=== PATIENT | male | born 1960 | race Caucasian/White ===

== ENCOUNTER 2020-11-11 10:31 | Inpatient (IN) ==
[2020-11-11 11:26] LABS: Basophils # (auto) 0.01 K/uL (0-0.2); Basophils % (auto) 0.2 %; Eosinophils % (auto) 1.9 %; Hematocrit (blood only) 42.3 % (42-52); Hemoglobin 14.1 g/dL (14.0-18.0); Immature Granulocytes # (auto) 0.01 K/uL (0.00-0.02); Immature Granulocytes % (auto) 0.2 %; Lymphocytes # (auto) 0.72 K/uL (1.2-3.4); Lymphocytes % (auto) 13.6 %; Mean Corpuscular Hemoglobin 29.1 pg (25-34); Mean Corpuscular Hgb Conc 33.3 g/dL (32-36); Mean Corpuscular Volume 87.4 fL (80-100); Mean Platelet Volume 8.8 fL (7.4-10.4); Monocytes # (auto) 0.18 K/uL (0.11-0.59); Monocytes % (auto) 3.4 %; Neutrophils # (auto) 4.28 K/uL (1.4-6.5); Neutrophils % (auto) 80.7 %; Platelet Count 224 K/uL (130-400); RDW Coefficient of Variation 13.2 % (11.5-14.5); RDW Standard Deviation 42.7 fL (36.4-46.3); Red Blood Count 4.84 M/uL (4.7-6.1)
[2020-11-11 11:36] LABS: Partial Thromboplastin Time 25.5 Seconds (21.0-31.0); Prothrombin Time 10.6 Seconds (9.0-12.0)
[2020-11-11 11:48] LABS: BUN Creatinine Ratio 16.4 (10-20); Blood Urea Nitrogen 13 mg/dl (7-18); Calcium 8.4 mg/dl (8.5-10.1); Carbon Dioxide 27 mmol/L (21-32); Chloride 110 mmol/L (98-107); Creatinine Clr Calc Pharmacy 95.4 ml/min; Est GFR (African American) 110.6 ml/min; Est GFR (Non-African American) 95.4 ml/min; Glucose 129 mg/dl (70-99); Lipase 220 U/L (73-393); Potassium 4.7 mmol/L (3.5-5.1); Sodium 138 mmol/L (136-145); Troponin I < 0.015 ng/ml (0-0.045)
--- NOTE | 2020-11-11 12:27 | CT Scan Report ---
CT ANGIOGRAM OF THE CHEST CLINICAL HISTORY: Chest Pain, eval for PE COMPARISON STUDY: Chest x-ray dated 07/12/2015 TECHNIQUE: Following the IV administration of 120 mL of Optiray, CT angiogram of the thorax was perfo rmed from the thoracic inlet to the lung bases utilizing the pulmonary embolus protocol. Images are r eviewed in the axial, sagittal, and coronal planes. IV contrast was administered without complication . MIP imaging was performed. A dose lowering technique was utilized adhering to the principles of AL MURI[place]. CT DOSE: 312.74 mGy.cm FINDINGS: No pathologically enlarged axillary mediastinal or hilar lymph nodes were visualized. There was no evidence of thoracic aortic dilatation. There are multiple bilateral pulmonary artery filling defects, the largest of which is located at the origin of the left lower lobe pulmonary artery. The findings are indicative of acute bilateral pulmo nary embolism No pleural effusions are visualized. There are mild dependent atelectatic changes. There is a low suspicion 4 mm right upper lobe perifissural nodule. IMPRESSION: 1. Acute bilateral pulmonary embolism. ACT 112: Negative or not required by law. Electronically signed by: Armando Jensen M.D. 11/11/2020 12:25 PM
[2020-11-11] MEDS ORDERED: Heparin IV Adult Wt-Based Standard WITH Bolus Protocol IV STA (12:52)
[2020-11-11] MEDS ORDERED: HEPARIN SOD (PORCINE) 1000 UNIT/ML IV ONE (13:07)
[2020-11-11] MEDS: HEPARIN SODIUM/DEXTROSE 25,000 UNITS/500 ML BAG IV SCH (13:21)
--- NOTE | 2020-11-11 13:39 | Electrocardiogram Report ---
Test Reason : Blood Pressure : / mmHG Vent. Rate : 109 BPM Atrial Rate : 136 BPM P-R Int : 000 ms QRS Dur : 102 ms QT Int : 340 ms P-R-T Axes : 000 -42 026 degrees QTc Int : 457 ms Atrial fibrillation with rapid ventricular response Left axis deviation Abnormal ECG When compared with ECG of 12-JUL-2015 16:58, Atrial fibrillation has replaced Sinus rhythm Vent. rate has increased BY 57 BPM QT has lengthened Confirmed by Farhad Yusuf ([id number]) on 11/11/2020 1:39:04 PM Referred By: REFERRED SELF Confirmed By:Ra Yusuf
--- NOTE | 2020-11-11 14:32 | Emergency Department Note ---
History of Present Illness General Chief complaint: Cardiac Assessment Stated complaint: New onset Afib Time Seen by Provider: 11/11/20 10:35 History of Present Illness Provider complaint: New onset atrial fibrillation Onset (ago): day(s) 1 60-year-old male presents emergency department from [facility]. I received a call from Dr. Fenton to [facility] anesthesia. Dr. Whyte states that the patient was undergoing a right axillary node biopsy and during the procedure went into atrial fibrillation with rapid ventricular rate. He states that the patient's rate was controlled with esmolol 100 mg and metoprolol 5 mg. He states that the patient does have a history of factor V Leyden and is not on anticoagulation and does have a history of a DVT. The patient is not currently reporting any chest pain or difficulty breathing. He states he did have some chest heaviness after the procedure however it has since resolved. No hemoptysis. No fevers. No difficulty breathing. Home Medications Medication Instructions Recorded Confirmed Type clonazepam 0.5 mg tablet (Klonopin) 0.5 mg PO HS PRN 02/13/20 11/11/20 History doxazosin 8 mg tablet (Cardura) 8 mg PO HS 02/13/20 11/11/20 History ketoconazole 2 % shampoo 1 ea TOPICAL 3XWK 02/13/20 11/11/20 History baclofen 20 mg tablet 20 mg PO TID PRN 11/11/20 11/11/20 History Allergies Allergy/AdvReac Type Severity Reaction Status Date / Time citalopram Allergy Intermediate RASH Verified 11/11/20 11:33 Sulfa (Sulfonamide Allergy Intermediate RASH Verified 11/11/20 11:33 Antibiotics) Penicillins Allergy Unknown UNKN Verified 11/11/20 11:33 "ALL MYCINS" Allergy Intermediate RASH Uncoded 11/11/20 11:33 Past Med/Surg History Medical History BPH (benign prostatic hyperplasia) High blood pressure Right leg DVT Surgical History H/O lymph node biopsy Social History Smoking Status: Never smoker Preferred Language: Belizean Feels Safe at Home: Yes Review of Systems A total of 10 systems reviewed and were otherwise negative Physical Exam Vital Signs Vital Signs - 24 hr 11/11/20 10:45 11/11/20 10:56 11/11/20 11:00 Temperature 36.5 C Temperature Source Oral Pulse Rate 134 H 126 H 105 H Pulse Rate from SpO2 Sensor 84 70 Pulse Rhythm Irregular Respiratory Rate 17 17 13 Respiratory Effort / Characteristics Non-Labored Spontaneous Respiratory Depth Normal Respiratory Pattern Regular Blood Pressure 96/68 L 96/68 L 108/68 Blood Pressure Mean 77 77 81 Blood Pressure Position Sitting Pulse Oximetry 94 92 95 Oxygen Delivery Method Room Air Sepsis Recent Fever Within 48 Hours No Sepsis New/Unexplained Change in Mental Status No Sepsis Action Taken by Nursing Physician Notified 11/11/20 11:33 11/11/20 12:00 11/11/20 12:30 Temperature Temperature Source Pulse Rate 45 L 48 L 42 L Pulse Rate from SpO2 Sensor 45 L 47 L 42 L Pulse Rhythm Respiratory Rate 14 16 14 Respiratory Effort / Characteristics Respiratory Depth Respiratory Pattern Blood Pressure 104/60 109/68 Blood Pressure Mean 74 81 Blood Pressure Position Pulse Oximetry 92 93 94 Oxygen Delivery Method Sepsis Recent Fever Within 48 Hours Sepsis New/Unexplained Change in Mental Status Sepsis Action Taken by Nursing 11/11/20 13:00 11/11/20 13:30 11/11/20 14:02 Temperature Temperature Source Pulse Rate 46 L 44 L 53 L Pulse Rate from SpO2 Sensor 44 L 43 L 53 L Pulse Rhythm Respiratory Rate 12 14 15 Respiratory Effort / Characteristics Respiratory Depth Respiratory Pattern Blood Pressure 118/64 115/64 Blood Pressure Mean 82 81 Blood Pressure Position Pulse Oximetry 96 95 95 Oxygen Delivery Method Sepsis Recent Fever Within 48 Hours Sepsis New/Unexplained Change in Mental Status Sepsis Action Taken by Nursing 11/11/20 14:30 Temperature Temperature Source Pulse Rate 64 Pulse Rate from SpO2 Sensor 66 Pulse Rhythm Respiratory Rate 18 Respiratory Effort / Characteristics Respiratory Depth Respiratory Pattern Blood Pressure 138/87 Blood Pressure Mean 104 Blood Pressure Position Pulse Oximetry 96 Oxygen Delivery Method Sepsis Recent Fever Within 48 Hours Sepsis New/Unexplained Change in Mental Status Sepsis Action Taken by Nursing Physical Exam GENERAL: He is oriented to person, place, and time. He appears well-developed and well-nourished. He does not appear distressed. HENT: Exam performed. - Head: Normocephalic and atraumatic. - Right Ear: External ear normal. No mastoid tenderness. - Left Ear: External ear normal. No mastoid tenderness. - Mouth/Throat: The oropharynx is clear and moist. No trismus in the jaw. No dental abscesses or uvula swelling. No oropharyngeal exudate or tonsillar abscesses. EYES: Conjunctivae and EOM are normal. Pupils are equal, round, and reactive to light. Right eye exhibits no discharge. Left eye exhibits no discharge. No scleral icterus. NECK: Normal range of motion. Neck supple. No JVD present. No spinous process tenderness present. No carotid bruit present. No rigidity. No tracheal deviation and normal range of motion present. No Brudzinski's sign and no Kernig's sign noted. CV: Normal rate, irregular rhythm, normal heart sounds and intact distal pulses. There is no peripheral edema. Palpable radial pulses bue. PULM/CHEST: Effort normal and breath sounds normal. No respiratory distress. No stridor. He has no wheezes. He has no rales. - Chest Wall: He exhibits no tenderness. ABD: The abdomen is soft. Bowel sounds are normal. He has no distension. No mass is present. There is no tenderness. There is no rebound, no guarding, no Chacon's sign and no tenderness at McBurney's point. Rovsig negative. MUSC/SKEL: Normal range of motion. There is no peripheral edema, tenderness or deformity. LYMPH: No cervical adenopathy. NEURO: He is alert and oriented to person, place, and time. He has normal strength. No cranial nerve deficit or sensory deficit. Coordination and gait normal. GCS eye subscore is 4. GCS verbal subscore is 5. GCS motor subscore is 6. Cerebellar tests wnl. SKIN: Skin is warm and dry. He is not diaphoretic. PSYCH: He has a normal mood and affect. Behavior is normal. Judgment and thought content normal. Course Course 1035: The patient was evaluated in room C9. A complete history and physical exam was performed Cardiac monitoring: An order was placed for continuous cardiac monitoring. The monitor shows a rate of 110 with atrial fibrilation rhythm 1115: Call from nursing. Patient converted to sinus rhythm on his own. Labs are within normal limits. Awaiting CT of the chest. 1255: Vital signs stable. Imaging shows bilateral PEs. Given the patient's history of factor V, new onset atrial fibrillation that has since resolved, and the CTA findings, the patient will be admitted to the [facility] hospitalist team. Discussed with Yue who recommended anticoagulation. We decided to choose heparin for the patient as he had a recent surgery in this way if there is excessive bleeding it could be easily be turned off to or reversed. Patient is in agreement to be evaluated overnight. Administered Medications Heparin Sodium/Dextrose (Heparin Sodium/Dextrose) 25,000 units in 500 mls @ 26 mls/hr IV .[id number] DOE; Protocol Stop: 12/11/20 13:14 Last Admin: 11/11/20 13:21 Dose: 1,300 units/hr, 26 mls/hr Documented by: [id number] Cosigned by: [id number] Discontinued Medications Heparin Sodium (Porcine) (Heparin Sod (Porcine) 1000 Unit/Ml) 1 units IV NOW ONE Stop: 11/11/20 13:08 Last Admin: 11/11/20 13:21 Dose: 6,000 units Documented by: [id number] Cosigned by: [id number] Heparin Sodium/Dextrose (Heparin Iv Adult Wt-Based Standard With Bolus Protocol) 1 ea IV NOW STA; Protocol Stop: 11/11/20 12:53 Last Admin: 11/11/20 13:22 Dose: Not Given Documented by: [id number] Medical Decision Making Laboratory Data Result diagrams: 11/11/20 11:11 11/11/20 11:11 Lab Results 11/11/20 11/11/20 11/11/20 Range/Units 11:11 11:11 11:11 WBC 5.30 (4.8-10.8) K/uL RBC 4.84 (4.7-6.1) M/uL Hgb 14.1 (14.0-18.0) g/dL Hct 42.3 (42-52) % MCV 87.4 (80-100) fL MCH 29.1 (25-34) pg MCHC 33.3 (32-36) g/dL RDW Std Deviation 42.7 (36.4-46.3) fL RDW Coeff of Deanna 13.2 (11.5-14.5) % Plt Count 224 (130-400) K/uL MPV 8.8 (7.4-10.4) fL Immature Gran % (Auto) 0.2 % Neut % (Auto) 80.7 % Lymph % (Auto) 13.6 % [place] % (Auto) 3.4 % Eos % (Auto) 1.9 % Baso % (Auto) 0.2 % Neut # (Auto) 4.28 (1.4-6.5) K/uL Lymph # (Auto) 0.72 L (1.2-3.4) K/uL [place] # (Auto) 0.18 (0.11-0.59) K/uL Eos # (Auto) 0.10 (0-0.5) K/uL Baso # (Auto) 0.01 (0-0.2) K/uL Immature Gran # (Auto) 0.01 (0.00-0.02) K/uL PT 10.6 (9.0-12.0) Seconds INR 1.0 (0.9-1.1) APTT 25.5 (21.0-31.0) Seconds PTT Ratio 1.0 Sodium 138 (136-145) mmol/L Potassium 4.7 (3.5-5.1) mmol/L Chloride 110 H (98-107) mmol/L Carbon Dioxide 27 (21-32) mmol/L Anion Gap 1.0 L (3-11) BUN 13 (7-18) mg/dl Creatinine 0.82 (0.6-1.4) mg/dl Est Cr Clr Drug Dosing 95.4 ml/min Est GFR ( Amer) 110.6 ml/min Est GFR (Non-Af Amer) 95.4 ml/min BUN/Creatinine Ratio 16.4 (10-20) Glucose 129 H (70-99) mg/dl Calcium 8.4 L (8.5-10.1) mg/dl Troponin I < 0.015 (0-0.045) ng/ml Lipase 220 (73-393) U/L COVID-19 Eval Order 11/11/20 Range/Units 13:29 WBC (4.8-10.8) K/uL RBC (4.7-6.1) M/uL Hgb (14.0-18.0) g/dL Hct (42-52) % MCV (80-100) fL MCH (25-34) pg MCHC (32-36) g/dL RDW Std Deviation (36.4-46.3) fL RDW Coeff of Deanna (11.5-14.5) % Plt Count (130-400) K/uL MPV (7.4-10.4) fL Immature Gran % (Auto) % Neut % (Auto) % Lymph % (Auto) % [place] % (Auto) % Eos % (Auto) % Baso % (Auto) % Neut # (Auto) (1.4-6.5) K/uL Lymph # (Auto) (1.2-3.4) K/uL [place] # (Auto) (0.11-0.59) K/uL Eos # (Auto) (0-0.5) K/uL Baso # (Auto) (0-0.2) K/uL Immature Gran # (Auto) (0.00-0.02) K/uL PT (9.0-12.0) Seconds INR (0.9-1.1) APTT (21.0-31.0) Seconds PTT Ratio Sodium (136-145) mmol/L Potassium (3.5-5.1) mmol/L Chloride (98-107) mmol/L Carbon Dioxide (21-32) mmol/L Anion Gap (3-11) BUN (7-18) mg/dl Creatinine (0.6-1.4) mg/dl Est Cr Clr Drug Dosing ml/min Est GFR ( Amer) ml/min Est GFR (Non-Af Amer) ml/min BUN/Creatinine Ratio (10-20) Glucose (70-99) mg/dl Calcium (8.5-10.1) mg/dl Troponin I (0-0.045) ng/ml Lipase (73-393) U/L COVID-19 Eval Order Covid19 at [facility] Imaging Data Radiologist's Impression: Chest CTA 11/11/20 10:36 CT ANGIOGRAM OF THE CHEST CLINICAL HISTORY: Chest Pain, eval for PE COMPARISON STUDY: Chest x-ray dated 07/12/2015 TECHNIQUE: Following the IV administration of 120 mL of Optiray, CT angiogram of the thorax was performed from the thoracic inlet to the lung bases utilizing the pulmonary embolus protocol. Images are reviewed in the axial, sagittal, and coronal planes. IV contrast was administered without complication. MIP imaging was performed. A dose lowering technique was utilized adhering to the principles of ALARA. CT DOSE: 312.74 mGy.cm FINDINGS: No pathologically enlarged axillary mediastinal or hilar lymph nodes were visualized. There was no evidence of thoracic aortic dilatation. There are multiple bilateral pulmonary artery filling defects, the largest of which is located at the origin of the left lower lobe pulmonary artery. The findings are indicative of acute bilateral pulmonary embolism No pleural effusions are visualized. There are mild dependent atelectatic changes. There is a low suspicion 4 mm right upper lobe perifissural nodule. IMPRESSION: 1. Acute bilateral pulmonary embolism. ACT 112: Negative or not required by law. Electronically signed by: Armando Jensen M.D. 11/11/2020 12:25 PM ECG Data Additional Comments: EKG #1 at 1039: Atrial fibrillation with a rate of 109. QRS and QTc intervals are within normal limits. No ST elevation or ST depression. EKG #2 at 1111: Sinus bradycardia with rate of 45. CO QRS and QTc intervals within normal limits. No ST elevation or ST depression. MDM Narrative 1035: The patient was evaluated in room C9. A complete history and physical exam was performed Cardiac monitoring: An order was placed for continuous cardiac monitoring. The monitor shows a rate of 110 with atrial fibrilation rhythm 1115: Call from nursing. Patient converted to sinus rhythm on his own. Labs are within normal limits. Awaiting CT of the chest. 1255: Vital signs stable. Imaging shows bilateral PEs. Given the patient's history of factor V, new onset atrial fibrillation that has since resolved, and the CTA findings, the patient will be admitted to the [facility] Hospitalist team. Discussed with Yue who recommended anticoagulation. We decided to choose heparin for the patient as he had a recent surgery in this way if there is excessive bleeding it could be easily be turned off to or reversed. Patient is in agreement to be evaluated overnight. Impression & Plan Pulmonary emboli, Atrial fibrillation Discharge Plan Visit Data Chief Complaint: Cardiac Assessment Stated Complaint: New onset Afib ED Provider: Dean Boone Discharge Problem: Pulmonary emboli, Atrial fibrillation Patient Disposition: Admitted As Inpatient Forms Stand Alone Forms: [facility] Prescriptions Prescriptions: No Action ketoconazole 2 % shampoo 1 ea TOPICAL [id number] RF: 0 clonazepam [Klonopin] 0.5 mg tablet 0.5 mg PO HS PRN (Reason: Sleep) RF: 0 doxazosin [Cardura] 8 mg tablet 8 mg PO HS RF: 0 baclofen 20 mg tablet 20 mg PO TID PRN (Reason: Muscle Spasm) RF: 0 Referrals Referrals: Vladimir Burroughs MD [Primary Care Provider] - Discharge Problem: Pulmonary emboli Qualifiers: Pulmonary embolism type: unspecified Chronicity: acute Acute cor pulmonale presence: unspecified Qualified Code(s): I26.99 - Other pulmonary embolism without acute cor pulmonale Atrial fibrillation Qualifiers: Atrial fibrillation type: unspecified Qualified Code(s): I48.91 - Unspecified atrial fibrillation
[2020-11-11] MEDS ORDERED: ACETAMINOPHEN 325 MG TAB PO PRN (16:23)
--- NOTE | 2020-11-11 18:15 | History & Physical Report ---
Date of Service November 11, 2020 Assessment & Plan (1) Bilateral pulmonary embolism: (2) Atrial fibrillation: (3) Factor V Leiden mutation: Plan: -Admit to telemetry -Presents from from the [facility] for evaluation of atrial fibrillation. Patient was having a right axilla suspected lipoma removed when at the end of the procedure he went to atrial fibrillation with RVR. He received esmolol 20 mg x 5 doses and metoprolol 2.5 mg x 2 doses with improvement in heart rate. -Converted to a sarahy NSR in the ED -CTA chest shows acute bilateral pulmonary embolism -Started on IV heparin drip, given history of factor V Leiden mutation and re current DVTs in the past, will need lifelong anticoagulation. Patient agreeable to Eliquis if cost is reasonable -Case management consult placed -Given bradycardia, will hold on rate controlling meds at this time -Echo -Cardiology consult (4) DVT prophylaxis: Plan: -On IV heparin drip as above Admission and Anticipated Discharge Date Admission Date: November 11, 2020 History of Present Illness Chief Complaint: Atrial fibrillation Primary Care Provider: Vladimir Burroughs MD 60-year-old male with PMH history of DVT currently not anticoagulated, factor V Leiden mutation, BPH, and other problems listed below who presents the ED from the [facility] for evaluation of atrial fibr illation. Patient was having a right axilla suspected lipoma removed when at the end of the procedure he went to atrial fibrillation with RVR. He received esmolol 20 mg x 5 doses and metoprolol 2.5 mg x 2 doses with improvement in heart rate. Patient was transferred to the ED for further evaluation. Patient reports that while biking a few days ago, he developed some chest discomfort which was unusual for him. It resolved quickly and he has had no further recurrences. He denies shortness of breath. No lightheadedness, dizziness, diaphoresis, syncopal events. Denies abdominal pain, nausea, vomiting, diarrhea. No urinary symptoms. Shortly after arriving to the ED, patient converted to a sarahy sinus rhythm. Patient was started on IV heparin. Allergies Allergy/AdvReac Type Severity Reaction Status Date / Time citalopram Allergy Intermediate RASH Verified 11/11/20 11:33 Sulfa (Sulfonamide Allergy Intermediate RASH Verified 11/11/20 11:33 Antibiotics) Penicillins Allergy Unknown UNKN Verified 11/11/20 11:33 "ALL MYCINS" Allergy Intermediate RASH Uncoded 11/11/20 11:33 Home Medications Medication Instructions Recorded Confirmed Type clonazepam 0.5 mg tablet (Klonopin) 0.5 mg PO HS PRN 02/13/20 11/11/20 History doxazosin 8 mg tablet (Cardura) 8 mg PO HS 02/13/20 11/11/20 History ketoconazole 2 % shampoo 1 ea TOPICAL 3XWK 02/13/20 11/11/20 History baclofen 20 mg tablet 20 mg PO TID PRN 11/11/20 11/11/20 History Past Med/Surg History Medical History BPH (benign prostatic hyperplasia) Factor V Leiden mutation History of DVT (deep vein thrombosis) 2013-completed Coumadin therapy 2015-extensive thrombophlebitis treated with Coumadin 2018-DVT initially treated with Xarelto however patient self stopped due to cost and hemorrhoidal bleeding eventually transition to Coumadin which patient subsequently self discontinued 2019-DVT treated with Coumadin which was discontinued by vascular surgery Surgical History H/O inguinal hernia repair H/O lymph node biopsy Family History Brother Heart disease Social History Smoking Status: Never smoker Hx Alcohol Use: Yes Alcohol type: beer Hx Substance Use: No Preferred Language: Maltese Communication Ability: Effective Breeding Technician Required: No Beliefs That Will Affect Care: None Current Living Situation: Alone Other Information That Helps Us Care for You: No Feels Safe at Home: Yes Safety Concerns: Feels Safe At This Time Assistive Devices: Glasses Review of Systems Review of Systems: ROS per HPI, all other systems reviewed and negative Physical Exam Constitutional: WD/WN, vitals as above Eyes: PERRL, conjunctivae normal, anicteric sclerae ENMT: external ear and nose normal, oropharynx normal Respiratory: normal respiratory effort, lungs clear to auscultation Cardiovascular: Rate/Rhythm: regular rate and + bradycardic Vessels: normal peripheral pulses Extremities: no edema Gastrointestinal (Abdomen): normal bowel sounds, soft, nontender, no hepatosplenomegaly Musculoskeletal: no cyanosis or clubbing, extremities motor strength 5/5 Skin: no rashes, warm and dry Surgical dressing in place to right axilla Neurologic: PERRL, EOMI, accommodation nl, no face palsy, no dysarthria Psychiatric: A+Ox3, euthymic affect Results & Data Results & Data ([place]) Vital Signs (Past 12 Hours) Vital Signs Temp Pulse Pulse Resp BP BP Pulse Ox 11/11/20 16:31 55 L 11/11/20 15:50 36.5 C 56 L 18 143/78 H 95 11/11/20 14:30 64 18 138/87 96 11/11/20 14:02 53 L 15 95 11/11/20 13:30 44 L 14 115/64 95 11/11/20 13:00 46 L 12 118/64 96 11/11/20 12:30 42 L 14 109/68 94 11/11/20 12:00 48 L 16 104/60 93 11/11/20 11:33 45 L 14 92 11/11/20 11:00 105 H 13 108/68 95 11/11/20 10:56 36.5 C 126 H 17 96/68 L 92 11/11/20 10:45 134 H 17 96/68 L 94 Laboratory Results Chest CTA 11/11/20 10:36 CT ANGIOGRAM OF THE CHEST CLINICAL HISTORY: Chest Pain, eval for PE COMPARISON STUDY: Chest x-ray dated 07/12/2015 TECHNIQUE: Following the IV administration of 120 mL of Optiray, CT angiogram of the thorax was performed from the thoracic inlet to the lung bases utilizing the pulmonary embolus protocol. Images are reviewed in the axial, sagittal, and coronal planes. IV contrast was administered without complication. MIP imaging was performed. A dose lowering technique was utilized adhering to the principles of ALARA. CT DOSE: 312.74 mGy.cm FINDINGS: No pathologically enlarged axillary mediastinal or hilar lymph nodes were visualized. There was no evidence of thoracic aortic dilatation. There are multiple bilateral pulmonary artery filling defects, the largest of which is located at the origin of the left lower lobe pulmonary artery. The findings are indicative of acute bilateral pulmonary embolism No pleural effusions are visualized. There are mild dependent atelectatic changes. There is a low suspicion 4 mm right upper lobe perifissural nodule. IMPRESSION: 1. Acute bilateral pulmonary embolism. ACT 112: Negative or not required by law. Electronically signed by: Armando Jensen M.D. 11/11/2020 12:25 PM Diagnostic Findings Short CBC 11/11/20 Range/Units 11:11 WBC 5.30 (4.8-10.8) K/uL Hgb 14.1 (14.0-18.0) g/dL Hct 42.3 (42-52) % Plt Count 224 (130-400) K/uL BMP 11/11/20 11:11 Sodium 138 Potassium 4.7 Chloride 110 H Carbon Dioxide 27 BUN 13 Creatinine 0.82 Glucose 129 H Calcium 8.4 L Cardiac Enzymes 11/11/20 11/11/20 Range/Units 11:11 16:42 Troponin I < 0.015 < 0.015 (0-0.045) ng/ml Code Status & VTE Plan VTE Prophylaxis Plan VTE Prophylaxis will be ordered: No Supervising Physician Co-Signing Physician Notes Attending Addendum: care coordinated with LAUREN leos Delayed entry Date of service noted above please refer to her notes for full details, I agree with her notes patient seen and examined, records reviewed by myself as well on exam, patient seen sitting up in bed, comfortable, not in distress States he feels fine overall Denies active chest pain, shortness of breath, dizziness, headache, nausea vomiting, abdominal pain, leg pain no other symptoms VS noted and reviewed oriented x 3, not in distress, speaks in sentences with no effort nor accessory muscle use normal rate, regular rhythm, no murmurs clear breath sounds bilaterally non distended, soft, nontender no bipedal edema, erythema, warmth no neuro deficits WBC 5.3 [address] angiogram of the chest: Positive for bilateral pulmonary emboli, acute ASSESSMENT AND PLAN Acute, bilateral pulmonary emboli History of factor V Leyden mutation --Patient reports that [place] last month --Currently hemodynamically stable, no hypoxia --Check echocardiogram --Heparin drip started With plans to transition to Eliquis Episode of atrial fibrillation --Occurred after lipoma surgery --Currently in sinus rhythm after IV beta-marbin administered --Heart rate in 50s to 60s --Check echocardiogram, wastewater project manager consulted, currently on heparin drip other diagnoses and plan of care as per LAUREN leos plan of care discussed with patient in detail and at length all questions answered He is understanding, agreeable, comfortable with the plan of care Ronnie Garrison MD (1) Atrial fibrillation Atrial fibrillation type: unspecified Qualified Code(s): I48.91 - Unspecified atrial fibrillation
[2020-11-11 19:57] LABS: Partial Thromboplastin Ratio 2.6
[2020-11-11 20:10] LABS: Partial Thromboplastin Time 67.3 Seconds (21.0-31.0)
--- NOTE | 2020-11-11 20:44 | Ultrasound Report ---
BILATERAL LOWER EXTREMITY VENOUS DOPPLER CLINICAL HISTORY: Pulmonary emboli. COMPARISON STUDY: Right lower extremity venous Doppler ultrasound September 06, 2013. TECHNIQUE: Sonography of the deep venous system of the bilateral lower extremities was performed. Co mpression and augmentation were evaluated. FINDINGS: Note is made of nonocclusive deep venous thrombus within the bilateral posterior tibial vei ns. Thrombus within the right posterior tibial vein was shown on ultrasound of September 06, 2013. Thrombus on this exam is age indeterminate. IMPRESSION: Age indeterminate deep venous thrombus within the bilateral posterior tibial veins. ACT 112: Negative or not required by law. Electronically signed by: Rodney Connolly M.D. 11/11/2020 8:43 PM
[2020-11-11] MEDS ORDERED: clonazePAM 0.5 MG TAB PO PRN (23:10)
[2020-11-11] MEDS ORDERED: clonazePAM 0.5 MG TAB PO ONE (23:38)
[2020-11-12 03:16] LABS: Hematocrit (blood only) 38.6 % (42-52); Hemoglobin 13.4 g/dL (14.0-18.0); Mean Corpuscular Hgb Conc 34.7 g/dL (32-36); Mean Corpuscular Volume 86.4 fL (80-100); Mean Platelet Volume 8.8 fL (7.4-10.4); Platelet Count 243 K/uL (130-400); RDW Coefficient of Variation 13.2 % (11.5-14.5); RDW Standard Deviation 41.6 fL (36.4-46.3); Red Blood Count 4.47 M/uL (4.7-6.1); White Blood Count 7.71 K/uL (4.8-10.8)
[2020-11-12 03:32] LABS: BUN Creatinine Ratio 20.6 (10-20); Calcium 8.6 mg/dl (8.5-10.1); Creatinine Clr Calc Pharmacy 85.5 ml/min; Est GFR (Non-African American) 92.3 ml/min; Potassium 4.1 mmol/L (3.5-5.1)
[2020-11-12 03:35] LABS: Partial Thromboplastin Ratio 2.4
[2020-11-12 03:38] LABS: Partial Thromboplastin Time 62.5 Seconds (21.0-31.0)
[2020-11-12 07:02] LABS: Estimated Average Glucose 134 mg/dl; Hemoglobin A1C 6.3 % (4.5-5.6)
[2020-11-12] MEDS: HEPARIN SODIUM/DEXTROSE 25,000 UNITS/500 ML BAG IV SCH (08:08)
--- NOTE | 2020-11-12 10:09 | Electrocardiogram Report ---
Test Reason : Blood Pressure : / mmHG Vent. Rate : 045 BPM Atrial Rate : 045 BPM P-R Int : 184 ms QRS Dur : 104 ms QT Int : 454 ms P-R-T Axes : 018 -47 013 degrees QTc Int : 392 ms Sinus bradycardia Left anterior fascicular block Abnormal ECG When compared with ECG of 11-NOV-2020 10:39, Sinus rhythm has replaced Atrial fibrillation Vent. rate has decreased BY 64 BPM QT has shortened Confirmed by Erwin Martin ([id number]) on 11/12/2020 10:09:13 AM Referred By: REFERRED SELF Confirmed By:Erwin Martin
--- NOTE | 2020-11-12 10:50 | Cardiology Consultation ---
Date of Consultation November 12, 2020 Assessment & Plan (1) Atrial fibrillation: (2) DVT (deep venous thrombosis): (3) Bilateral pulmonary embolism: Patient with [id number] score of 1 for history of HTN. Given DVT / pulmonary embolism findings , plus inherited hypercoagulable predisposition, recommend anticoagulation (likely lifelong as this is a recurrent unprovoked DVT episode) . With regards to his atrial fibrillation. He had no subjective symptoms per his description yesterday. Sinus bradycardia noted and therefore there is no room to add an AV caroline marbin. Would treat AF with anticoagulation and monitor. Echo reassuring. No RV strain. Pulse ox is 95% on room air. Patient is on a heparin infusion. If able to ambulate without any symptoms of chest pain or shortness of breath OK to consider discharge. Anticoagulation treatment options discussed with patient and Dr Garrison. If cost effective, will transition to oral Eliquis. If to expensive will consider lovenox bridge to coumadin as outpatient. History of Present Illness Attending Physician: Ronnie Garrison MD History of Present Illness Ty House is a 60-year-old male seen in cardiology consultation per the request of LAUREN Souza for the evaluation of atrial fibrillation. Patient was having surgical excision of a right axillary lesion (suspected lipoma) yesterday the conclusion of the procedure apparently lapsed into atrial fibrillation with rapid ventricular response. He received IV esmolol and IV metoprolol with improvement in his heart rate. He was subsequently transferred to this institution arriving via the emergency room. On telemetry, it is noted that he converted from atrial fibrillation to sinus rhythm yesterday 11/11/2020 at 11:08 AM without any conversion pause, and he has been in sinus bradycardia for the most part in the 50s since then. He has a past medical history of venous ablation performed several years ago by vascular surgery at [facility]. He also has a history of having factor V Leiden mutation (heterozygous). He is not on chronic anticoagulation. He states he is on doxazosin for HTN and BPH as outpatient. At baseline, he describes himself as being physically active. He mountain bikes, with what sounds like a normal degree of shortness of breath with heavy physical exertion. 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 He states he lives alone, having recently gone through a divorce. He has an occasional glass of beer. He notes having had 3 beers the night before his surgery. Family History: Describes two brothers had "heart attack" episodes in there 40s, with normal cardiac catheterizations. 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 Allergies Allergy/AdvReac Type Severity Reaction Status Date / Time citalopram Allergy Intermediate RASH Verified 11/11/20 11:33 Sulfa (Sulfonamide Allergy Intermediate RASH Verified 11/11/20 11:33 Antibiotics) Penicillins Allergy Unknown UNKN Verified 11/11/20 11:33 "ALL MYCINS" Allergy Intermediate RASH Uncoded 11/11/20 11:33 Home Medications Medication Instructions Recorded Confirmed Type clonazepam 0.5 mg tablet (Klonopin) 0.5 mg PO HS PRN 02/13/20 11/11/20 History doxazosin 8 mg tablet (Cardura) 8 mg PO HS 02/13/20 11/11/20 History ketoconazole 2 % shampoo 1 ea TOPICAL 3XWK 02/13/20 11/11/20 History baclofen 20 mg tablet 20 mg PO TID PRN 11/11/20 11/11/20 History Patient History Medical History BPH (benign prostatic hyperplasia) Factor V Leiden mutation History of DVT (deep vein thrombosis) 2013-completed Coumadin therapy 2015-extensive thrombophlebitis treated with Coumadin 2018-DVT initially treated with Xarelto however patient self stopped due to cost and hemorrhoidal bleeding eventually transition to Coumadin which patient subsequently self discontinued 2019-DVT treated with Coumadin which was discontinued by vascular surgery Surgical History H/O inguinal hernia repair H/O lymph node biopsy Family History Brother Heart disease Social History Smoking Status: Never smoker Hx Alcohol Use: Yes Alcohol type: beer Hx Substance Use: No Preferred Language: Qatari Communication Ability: Effective Marketing Campaign Analyst Required: No Beliefs That Will Affect Care: None Current Living Situation: Alone Other Information That Helps Us Care for You: No Feels Safe at Home: Yes Safety Concerns: Feels Safe At This Time Assistive Devices: Glasses Review of Systems Review of Systems: All systems reviewed & are unremarkable except as noted in HPI & below Physical Exam Physical Exam: Temp Pulse Resp BP Pulse Ox 36.5 C 55 L 18 150/80 H 95 11/12/20 07:50 11/12/20 07:50 11/12/20 07:50 11/12/20 07:50 11/12/20 07:50 Constitutional: WD/WN, vitals as above Respiratory: Auscultation: lungs clear to auscultation bilaterally Cardiovascular: RRR, no murmur, no edema Prominent superficial veins in the lower extremities/calves bilaterally Gastrointestinal (Abdomen): normal bowel sounds, soft, nontender, no hepatosplenomegaly Neurologic: PERRL, EOMI, accommodation nl, no face palsy, no dysarthria Results & Data ([facility]) Vital Signs (Past 12 Hours) Vital Signs Temp Pulse Pulse Resp BP Pulse Ox 11/12/20 07:50 36.5 C 55 L 18 150/80 H 95 11/12/20 02:45 36.7 C 55 L 18 136/73 94 11/12/20 00:30 50 L 11/11/20 23:11 36.6 C 56 L 17 128/76 94 Laboratory Results Cardiac Enzymes 11/11/20 11/11/20 11/11/20 Range/Units 11:11 16:42 22:48 Troponin I < 0.015 < 0.015 < 0.015 (0-0.045) ng/ml Coagulation 11/11/20 11/11/20 11/12/20 Range/Units 11:11 19:15 03:01 PT 10.6 (9.0-12.0) Seconds APTT 25.5 67.3 H* 62.5 H* (21.0-31.0) Seconds CBC 11/11/20 11/12/20 Range/Units 11:11 03:01 WBC 5.30 7.71 (4.8-10.8) K/uL RBC 4.84 4.47 L (4.7-6.1) M/uL Hgb 14.1 13.4 L (14.0-18.0) g/dL Hct 42.3 38.6 L (42-52) % Plt Count 224 243 (130-400) K/uL Neut # (Auto) 4.28 (1.4-6.5) K/uL Lymph # (Auto) 0.72 L (1.2-3.4) K/uL [place] # (Auto) 0.18 (0.11-0.59) K/uL Eos # (Auto) 0.10 (0-0.5) K/uL Baso # (Auto) 0.01 (0-0.2) K/uL Comprehensive Metabolic Panel 11/11/20 11/12/20 Range/Units 11:11 03:01 Sodium 138 139 (136-145) mmol/L Potassium 4.7 4.1 (3.5-5.1) mmol/L Chloride 110 H 109 H (98-107) mmol/L Carbon Dioxide 27 28 (21-32) mmol/L BUN 13 18 (7-18) mg/dl Creatinine 0.82 0.89 (0.6-1.4) mg/dl Glucose 129 H 144 H (70-99) mg/dl Calcium 8.4 L 8.6 (8.5-10.1) mg/dl Intake and Output 11/11/20 11/12/20 11/12/20 22:59 06:59 14:59 Intake Total 550.233 / 1005.233 455 / 1005.233 71.667 / 71.667 Output Total 500 / 500 Balance 50.233 / 505.233 455 / 505.233 71.667 / 71.667 Intake: IV 190.233 / 405.233 215 / 405.233 71.667 / 71.667 Heparin Sodium/Dextrose 25,000 190.233 / 405.233 215 / 405.233 71.667 / 71.667 units In 500 ml @ 1,250 UNITS/ HR 25 mls/hr IV .Q20H [facility] Rx#: [id number] Oral 360 / 600 240 / 600 Output: Urine 500 / 500 Other: # Unmeasured Voids 1 Weight 77.7 kg 77.4 kg Weight Measurement Method Standing Scale Standing Scale Diagnostic Findings Lower Ext venous duplex: age interderminate DVT [id number] the bilateral posterior tibial veins CTA chest: acute bilateral Pulmonary embolism. EKG performed 11/11/2020 and reviewed independently revealed atrial fibrillation with mildly elevated ventricular response of 109 bpm. No significant repolarization changes. Repeat tracing this morning 11/11/2020 at 11:11 AM revealed sinus bradycardia 45 bpm with left anterior fascicular block. Corrected QT interval normal 392 ms. Preliminary echocardiogram review: Normal biventricular chamber size and systolic function, no regional wall motion abnormalities, no pulmonary hypertension. (1) Atrial fibrillation Atrial fibrillation type: unspecified Qualified Code(s): I48.91 - Unspecified atrial fibrillation
--- NOTE | 2020-11-12 12:26 | Hospitalist Progress Note ---
Date of Service November 12, 2020 Assessment & Plan (1) Bilateral pulmonary embolism: (2) Atrial fibrillation: (3) Factor V Leiden mutation: Plan: Per LAUREN leos's notes: -Presents from from the [facility] surgical center for evaluation of atrial fibrillation. Patient was having a right axilla suspected lipoma removed when at the end of the procedure he went to atrial fibrillation with RVR. He received esmolol 20 mg x 5 doses and metoprolol 2.5 mg x 2 doses with improvement in heart rate. 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 Patient agreeable to Eliquis if cost is reasonable -Case management consult placed -Given bradycardia, will hold on rate controlling meds at this time -Echo -Cardiology consult November 12, 2020 Patient remains hemodynamically stable, no hypoxia noted Has remained in sinus rhythm since admission, heart rate in the mid 50s Tolerating heparin IV, no bleeding Echocardiogram: Unremarkable per head of ethics and compliance Dr. Garcia Atrial fibrillation likely related to ongoing acute pulmonary emboli No further cardiac intervention at this point as per cardiology service Plan to transition from heparin to Eliquis today pending case management checking of cost Will need to follow-up with hematology service (4) DVT prophylaxis: Plan: -On IV heparin drip as above Plan: Discharge to home medically stable Follow-up with PCP in 1 week Follow-up with hematology service in 2 to 3 weeks Admission and Anticipated Discharge Date Admission Date: November 11, 2020 Subjective Follow-up for acute bilateral PE, atrial fibrillation episode, etc. Seen sitting up in bed, comfortable, not in distress States he feels fine overall, is very minimal intermittent discomfort over the left side of the chest Otherwise no active chest pain, shortness of breath, dizziness, palpitations, abdominal pain, nausea vomiting, bleeding No leg pain Denies other symptoms States that he is ready and would like to go home today if possible Review of Systems Review of Systems: All noted and negative, except for above Physical Exam Physical Exam: General- oriented x 3, not in distress, speaks in sentences with no effort or accessory muscle use Eyes- anicteric Neck- no JVD Lungs- clear breath sounds bilaterally, no crackles, no wheezing Heart- normal rate, regular rhythm; no murmurs Abdomen- normal bowel sounds, nondistended, soft, nontender Extremities- no pretibial edema, no calf tenderness Neuro- alert, oriented x 3; no gross focal neurologic deficits Skin- warm & dry Results & Data Results & Data ([facility]) Vital Signs (Past 12 Hours) Vital Signs Temp Pulse Pulse Resp BP Pulse Ox 11/12/20 11:30 36.5 C 51 L 17 141/96 H 95 11/12/20 07:50 36.5 C 55 L 18 150/80 H 95 11/12/20 02:45 36.7 C 55 L 18 136/73 94 11/12/20 00:30 50 L all noted and reviewed including below (1) Atrial fibrillation Atrial fibrillation type: unspecified Qualified Code(s): I48.91 - Unspecified atrial fibrillation
[2020-11-12] MEDS ORDERED: APIXABAN 5 MG TABLET PO SCH ×2 (15:55→16:00)
--- NOTE | 2020-11-24 08:41 | Coding Query ---
CODING QUERY To promote full compliance with coding requirements relating to patient care, provider participation is requested in all cases of harness cleaner uncertainty. Please assist us with the question(s) below: Coding Question(s): There is documentation of history of DVTs and Cardiology Consultation documents DVT with documentation, "Given DVT / pulmonary embolism findings , plus inherited hypercoagulable predisposition, recommend anticoagulation (likely lifelong as this is a recurrent unprovoked DVT episode)", and Venous Doppler documents under Impression, "Age indeterminate deep venous thrombus within the bilateral posterior tibial veins". 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 Please specify below, in your clinical opinion, regarding DVT. ( ) there was current DVT during this admission. Please specify further below: ( ) likely acute DVT of bilateral posterior tibial veins ( ) likely chronic DVT of bilateral posterior tibial veins ( ) Other: Please Specify ( ) history only of DVT with no current DVT during this admission ( x ) Other: Please Specify____Age indeterminate deep venous thrombus within the bilateral posterior tibial veins. Physician's Response(s): Thank you Sarina Rowe Principal Diagnosis: "that condition established after study, to be chiefly responsible for occasioning the admission of the patient to the hospital for care." Co-Existing Principal Diagnosis: "when two or more diagnoses equally meet the criteria for principal diagnosis as determined by the circumstances of admission, diagnostic work up, and/or therapy provided, and the Alphabetic Index, Tabular List, or another coding guideline does not provide sequencing direction, any one of the diagnoses may be sequenced first." "When the physician has documented what appears to be a current diagnosis in the body of the record, but has not included the diagnosis in the final diagnostic statement, the physician should be asked whether the diagnosis should be added." (Source [facility]oding [facility] 2 QTR90. p3-4) MIHAI
--- NOTE | 2020-11-29 11:54 | Discharge Summary ---
Date of Service November 29, 2020 Admission HPI Per Admitting Provider 60-year-old male with PMH history of DVT currently not anticoagulated, factor V Leiden mutation, BPH, and other problems listed below who presents the ED from the [facility] [place] for evaluation of atrial fibrillation. Patient was having a right axilla suspected lipoma removed when at the end of the procedure he went to atrial fibrillation with RVR. He received esmolol 20 mg x 5 doses and metoprolol 2.5 mg x 2 doses with improvement in heart rate. Patient was transferred to the ED for further evaluation. Patient reports that while biking a few days ago, he developed some chest discomfort which was unusual for him. It resolved quickly and he has had no further recurrences. He denies shortness of breath. No lightheadedness, dizziness, diaphoresis, syncopal events. Denies abdominal pain, nausea, vomiting, diarrhea. No urinary symptoms. Shortly after arriving to the ED, patient converted to a sarahy sinus rhythm. Patient was started on IV heparin. Admission Exam Per Admitting Provider Constitutional: WD/WN, vitals as above Eyes: PERRL, conjunctivae normal, anicteric sclerae ENMT: external ear and nose normal, oropharynx normal Respiratory: normal respiratory effort, lungs clear to auscultation Cardiovascular: Rate/Rhythm: regular rate and + bradycardic Vessels: normal peripheral pulses Extremities: no edema Gastrointestinal (Abdomen): normal bowel sounds, soft, nontender, no hepatosplenomegaly Musculoskeletal: no cyanosis or clubbing, extremities motor strength 5/5 Skin: no rashes, warm and dry Surgical dressing in place to right axilla Neurologic: PERRL, EOMI, accommodation nl, no face palsy, no dysarthria Psychiatric: A+Ox3, euthymic affect Principal Diagnosis Acute Bilateral Pulmonary Embolism Discharge Exam General- oriented x 3, not in distress, speaks in sentences with no effort or accessory muscle use Eyes- anicteric Neck- no JVD Lungs- clear breath sounds bilaterally, no crackles, no wheezing Heart- normal rate, regular rhythm; no murmurs Abdomen- normal bowel sounds, nondistended, soft, nontender Extremities- no pretibial edema, no calf tenderness Neuro- alert, oriented x 3; no gross focal neurologic deficits Skin- warm & dry Discharge Data Allergies Allergy/AdvReac Type Severity Reaction Status Date / Time citalopram Allergy Intermediate RASH Verified 11/11/20 11:33 Sulfa (Sulfonamide Allergy Intermediate RASH Verified 11/11/20 11:33 Antibiotics) Penicillins Allergy Unknown UNKN Verified 11/11/20 11:33 "ALL MYCINS" Allergy Intermediate RASH Uncoded 11/11/20 11:33 Consultations 11/11/20 12:55 ED Decision to Admit Stat 11/11/20 16:23 Consult Cardiology Routine Ordered Studies 11/11/20 10:36 CT angio chest PE protocol Stat CT ANGIOGRAM OF THE CHEST CLINICAL HISTORY: Chest Pain, eval for PE COMPARISON STUDY: Chest x-ray dated 07/12/2015 TECHNIQUE: Following the IV administration of 120 mL of Optiray, CT angiogram of the thorax was performed from the thoracic inlet to the lung bases utilizing the pulmonary embolus protocol. Images are reviewed in the axial, sagittal, and coronal planes. IV contrast was administered without complication. MIP imaging was performed. A dose lowering technique was utilized adhering to the principles of ALARA. CT DOSE: 312.74 mGy.cm FINDINGS: No pathologically enlarged axillary mediastinal or hilar lymph nodes were visualized. There was no evidence of thoracic aortic dilatation. There are multiple bilateral pulmonary artery filling defects, the largest of which is located at the origin of the left lower lobe pulmonary artery. The f indings are indicative of acute bilateral pulmonary embolism No pleural effusions are visualized. There are mild dependent atelectatic changes. There is a low suspicion 4 mm right upper lobe perifissural nodule. IMPRESSION: 1. Acute bilateral pulmonary embolism. 11/11/20 18:14 US venous doppler LE BI Routine BILATERAL LOWER EXTREMITY VENOUS DOPPLER CLINICAL HISTORY: Pulmonary emboli. COMPARISON STUDY: Right lower extremity venous Doppler ultrasound September 06, 2013. TECHNIQUE: Sonography of the deep venous system of the bilateral lower extremities was performed. Compression and augmentation were evaluated. FINDINGS: Note is made of nonocclusive deep venous thrombus within the bilateral posterior tibial veins. Thrombus within the right posterior tibial vein was shown on ultrasound of September 06, 2013. Thrombus on this exam is age indeterminate. IMPRESSION: Age indeterminate deep venous thrombus within the bilateral posterior tibial veins. Hospital Course (1) Bilateral pulmonary embolism: (2) Atrial fibrillation: (3) Factor V Leiden mutation: Per LAUREN leos's notes: -Presents from from [facility] for evaluation of atrial fibrillation. Patient was having a right axilla suspected lipoma removed when at the end of the procedure he went to atrial fibrillation with RVR. He received esmolol 20 mg x 5 doses and metoprolol 2.5 mg x 2 doses with improvement in heart rate. 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 Patient agreeable to Eliquis if cost is reasonable -Case management consult placed -Given bradycardia, will hold on rate controlling meds at this time -Echo -Cardiology consult November 12, 2020 Patient remains hemodynamically stable, no hypoxia noted Has remained in sinus rhythm since admission, heart rate in the mid 50s Tolerating heparin IV, no bleeding Echocardiogram: Unremarkable per vrt mechanic Dr. Garcia Atrial fibrillation likely related to ongoing acute pulmonary emboli No further cardiac intervention at this point as per cardiology service Plan to transition from heparin to Eliquis today pending case management checking of cost Will need to follow-up with hematology service plan of care discussed with patient in detail and at length all questions answered he is understanding, agreeable, comfortable with the plan of care (4) DVT prophylaxis: -On IV heparin drip as above Discharge to home medically stable Follow-up with PCP in 1 week Follow-up with hematology service in 2 to 3 weeks Total Time Total Time Spent Total Time Spent (In Minutes): >30 minutes Discharge Plan Discharge Items Patient Disposition: Home - Self-Care Reason For Visit: AFIB, PE Discharge Diagnosis: Acute bilateral pulmonary embolism Episode of atrial fibrillation Activity: As commented below Activity Comment: Resume activity gradually as tolerated Lifting: Wait until after follow-up appointment Exercise/Sports: Wait until after follow-up appointment Driving/Machine Use: No driving until reevaluated and allowed by primary care physician Non-emergency contact: Primary Care Provider Call non-emergency contact if: you have any medication questions, your symptoms worsen, your pain is not controlled, your pain is worsening, your pain is concerning for you and you have a fever Follow-up/Referrals: Vladimir Burroughs MD [Primary Care Provider] - Diet: Heart Healthy Addtl Attending Provider Instructions: Your new medication is Eliquis-blood thinner for treatment of blood clots in the lung. Please follow instructions carefully. Take Eliquis 10 mg twice daily x1 week then Take Eliquis 5 mg twice daily indefinitely You need to take Eliquis twice a day regularly to prevent recurrence of blood clots. If you have any signs of bleeding, inform your primary care physician immediately or return to the ER immediately if with uncontrolled bleeding. If you sustain any head trauma, even if without any symptoms, you need to proceed to the ER immediately for evaluation and a CAT scan of your head. Call primary care physician or return to the ER immediately if with worsening of symptoms. Follow-up with your primary care physician in 1 week. [facility] will be calling you soon for the appointment. Pending Studies at Discharge: No Stand-Alone Forms: [facility] [employer], Smoking Cessation Medications and DC Order Prescriptions: New Eliquis 5 mg Tablet 5 mg PO UD Qty: 90 RF: 2 Continued ketoconazole 2 % shampoo 1 ea TOPICAL 3XWK RF: 0 clonazepam [Klonopin] 0.5 mg tablet 0.5 mg PO HS PRN (Reason: Sleep) RF: 0 doxazosin [Cardura] 8 mg tablet 8 mg PO HS RF: 0 baclofen 20 mg tablet 20 mg PO TID PRN (Reason: Muscle Spasm) RF: 0 Discharge Orders: Discharge Order (Routine); Ordered 11/12/20 Ordered By: Ronnie Otto/Other Patient Handouts: A1C, Pulmonary Embolism, AFL/Afib, 5 Steps for Eating Healthier, Preventing Deep Vein Thrombosis Admission Data Admit Date/Time: 11/11/20 13:19 Attending Provider: Ronnie Garrison Admit Provider: Timo Del Angel Primary Care Provider: Vladimir Burroughs Other Providers: Rudy Garcia Other Interventions: Discharge Summary Assessment (RN) Last Done: 11/12/20 16:31
== END 2020-11-12 17:28 | disposition home or self-care (01) | DRG 176 ==
LOC: ED 10:31 → 2S 13:19 → SUATTDRO 13:19 → 2S 15:05